=== PATIENT | male | born 1980 | race African-American/Black ===

== ENCOUNTER 2018-02-13 12:27 | Emergency (ER) | payer OTHER ==
[2018-02-13 12:34] VITALS: BP 147/75; PULSE 72; TEMP 98; BMI 29.3
[2018-02-13] MEDS ORDERED: DIPHTH,PERTUSS(ACELL),TET 0.5 ML DISP.SYRIN IM ONE (13:04)
--- NOTE | 2018-02-13 13:13 | PDOC ---
History of Present Illness - General Chief Complaint: Laceration Stated Complaint: INJURY Time Seen by Provider: 02/13/18 12:39 History Source: Patient Exam Limitations: No Limitations - History of Present Illness Initial Comments: CHIEF COMPLAINT: 37 y/o afebrile male with no significant PMH here with a laceration to right eye. HISTORY OF PRESENT ILLNESS: The patient was elbowed in the right eye today while playing basketball. He denies LOC, head, changes in vision. He did not clean it. He is not UTD on tetanus. Past History - Past Medical History Allergies/Adverse Reactions: Allergies Allergy/AdvReac Type Severity Reaction Status Date / Time No Known Allergies Allergy Verified 02/13/18 12:31 Home Medications: Ambulatory Orders NK [No Known Home Medication] 02/13/18 COPD: No - Suicide/Smoking/Psychosocial Hx Smoking History: Never smoked Review of Systems - Review of Systems Able to Perform ROS?: Yes Constitutional: No: Symptoms Reported HEENTM: No: Symptoms Reported Neurological: No: Symptoms reported *Physical Exam - Vital Signs Last Vital Signs Temp Pulse Resp BP Pulse Ox 98 F 72 18 147/75 99 02/13/18 12:28 02/13/18 12:28 02/13/18 12:28 02/13/18 12:28 02/13/18 12:28 - Physical Exam Comments: The patient is well appearing and ambulatory. General Appearance: Yes: Nourished, Appropriately Dressed. No: Apparent Distress HEENT: positive: EOMI, LORENZA, Other (no entrapment). negative: Photophobia Integumentary: positive: Other (3cm horizontal laceration just inferior to inferior border of right lateral eyebrow with minimal bleeding. margins very well approximated.) Procedures - Laceration/Wound Repair Right Eye Wound Length: 2.6 to 5.0 cm Wound's Depth, Shape: superficial, linear Irrigated w/ Saline: Yes Betadine Prep: Yes Anesthesia: 1% Lidocaine Amount of Anesthetic (ccs): 2 Wound Debrided: minimal Wound Repaired With: Sutures Suture Size/Type: 6:0 (2 external) Number of Sutures: 2 Layer Closure: Yes Deep Layer Suture Size/Type: 5:0 (2) Medical Decision Making - Medical Decision Making A/P: 37 y/o male with laceration to right eyebrow. Numbed area, cleaned it thoroughly and then sutured closed. 2 internal absorbable sutures and 2 external sutures. Patient instructed to keep dry for 24 hours and then keep clean. Instructed him to return to the ER or PCP in 5-7 days for suture removal. Patient given tetanus injection and is UTD for 10 years. The patient verbalizes understanding of all instructions, has no further questions and is awaiting discharge. *DC/Admit/Observation/Transfer Diagnosis at time of Disposition: Laceration - Discharge Dispostion Disposition: HOME Condition at time of disposition: Improved - Referrals Referrals: Neil Naylor MD [Primary Care Provider] - - Patient Instructions Printed Discharge Instructions: DI for Laceration Repair Additional Instructions: Discharge Instructions: -You received a tetanus shot today; you are now up to date for 10 years -Keep area dry for 24 hours -After 24 hours can gently wash with soap and water; pat dry -Return to the ER or your primary care doctor in 5-7 days to have stitches removed - Post Discharge Activity
== END 2018-02-13 13:16 | disposition home or self-care (01) ==
LOC: JER 12:27 → JERFT 12:27
PROC: 0HQ1XZZ Repair Face Skin, External Approach (ICD-10-PCS; principal; 2018-02-13)
PROC: 3E0234Z Introduction of Serum, Toxoid and Vaccine into Muscle, Percutaneous Approach (ICD-10-PCS; 2018-02-13)
DX: S01.111A Laceration without foreign body of right eyelid and periocular area, initial encounter (principal); W50.0XXA Accidental hit or strike by another person, initial encounter; Y93.67 Activity, basketball; Y92.310 Basketball court as the place of occurrence of the external cause; Y99.8 Other external cause status
CPT/HCPCS: 90715; 99282-25

== ENCOUNTER 2018-02-19 17:26 | Emergency (ER) | payer OTHER ==
--- NOTE | 2018-02-19 17:48 | PDOC ---
Suture Removal/Wound Check HPI - History of Present Illness Stated Complaint: SUTURE REMOVAL Time Seen by Provider: 02/19/18 17:46 History Source: Yes: Patient Treated at: [facility] Date of Last ED visit: 02/13/18 - Previous ED Treatment Type of procedure performed on last visit: Yes: Laceration Repair Past History - Past Medical History Allergies/Adverse Reactions: Allergies Allergy/AdvReac Type Severity Reaction Status Date / Time No Known Allergies Allergy Verified 02/19/18 17:47 Home Medications: Ambulatory Orders NK [No Known Home Medication] 02/13/18 COPD: No - Suicide/Smoking/Psychosocial Hx Smoking History: Never smoked Suture Removal/Wound Check PE - Physical Exam Laceration/Wound Check Symptoms: denies: Pain, Fever, Chills, Redness Location of Laceration/Wound: right: Face (well healing lac to R brow w/ 2 sutures intact, no sign of infxn) *Review of Systems - Review of Systems Constitutional: No: Chills, Fever Medical Decision Making - Medical Decision Making 02/19/18 18:12 Suture removal to R brow No complications 2 sutures removed *DC/Admit/Observation/Transfer Diagnosis at time of Disposition: Visit for suture removal - Discharge Dispostion Disposition: HOME Condition at time of disposition: Good - Referrals - Patient Instructions Printed Discharge Instructions: DI for Suture Removal - Post Discharge Activity
[2018-02-19 17:54] VITALS: BP 139/79; PULSE 59; TEMP 98.3; BMI 29.3
== END 2018-02-19 17:55 | disposition home or self-care (01) ==
LOC: JER 17:26
DX: Z48.817 Encounter for surgical aftercare following surgery on the skin and subcutaneous tissue (principal); Z48.02 Encounter for removal of sutures
CPT/HCPCS: 99281-25